=== PATIENT | female | born 1965 | race Caucasian/White ===

== ENCOUNTER → 2018-03-18 11:40 | Outpatient (CLI) | payer OTHER, SELFPAY ==
--- NOTE | 2018-03-18 | DI.MRI.S_ITS ---
PROCEDURE: MR SHOULDER RT WO/W CON INDICATIONS: REPETITIVE STRAIN INJURY OF RIGHT SHOULDER TECHNIQUE: Noncontrast oblique coronal T1 spin echo and T2 fast spin echo with fat saturation, oblique sagittal T1 spin echo and T2 fast spin echo with fat saturation, axial T1 spin echo and T2 fast spin echo with fat saturation through the shoulder. Post-contrast oblique coronal, oblique sagittal, and axial T1 spin echo with fat saturation through the shoulder. COMPARISON: None. FINDINGS: Image quality: Excellent. Rotator cuff: There is no full-thickness or high-grade partial-thickness tear of the rotator cuff. However, there is diffuse increased signal and mild thickening involving the subscapularis tendon without significant partial-thickness tearing identified. Minimal increased signal involving the distal margin of the supraspinatus tendon is present. The infraspinatus and teres minor tendons are intact. There is no significant atrophy of the rotator cuff muscles. There is mild enhancement involving the supraspinatus and subscapularis tendons. Bones and bursae: There is no acute fracture, dislocation, or suspicious osseous lesion identified involving the osseous structures of the right shoulder. No suspicious osseous enhancement is identified. There are mild degenerative changes of the glenohumeral and, clavicular joints. Minimal degenerative cystic change are noted upon the inter-margin of the glenoid fossa. There is mild posterior subluxation of the humeral head with respect to the glenoid. There is a small glenohumeral joint effusion. There are moderate degenerative changes of the acromioclavicular joint. A small amount of fluid is contained within the subacromial subdeltoid bursa. Capsule and soft tissues: Evaluation of the labrum and the glenohumeral ligaments is difficult without intra-articular contrast. No acute ligamentous injuries are suspected. However, small amount of joint fluid extending beyond inferior joint capsule may represent a chronic inferior glenohumeral ligament injury. There is a moderate-sized tear of the superior labrum that extends from approximately the 3 o'clock position to the 9 o'clock position. No detachment or fragments with large prevertebral cysts are identified. The long head of the biceps tendon is normally positioned within the bicipital groove. There is increased signal identified at the biceps anchor, suggesting probable partial-thickness tearing. No soft tissue masses are identified. There is no abnormal enhancement involving the soft tissues of the right shoulder. IMPRESSION: 1. Mild to moderate supraspinatus and subscapularis tendinopathy without significant tearing. 2. Moderate-sized superior labral tear probably involves the biceps anchor. 3. Degenerative changes of the glenohumeral joint with an associated small joint effusion. 4. Moderate degenerative changes of the acromioclavicular joint. 5. 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 6. No abnormal bony enhancement or suspicious soft tissue enhancement. Dictated by: Maximiliano Kong M.D. on 03/18/2018 at 16:30 Approved by: Maximiliano Kong M.D. on 03/18/2018 at 16:57
== END ==
PROVIDERS: Visit Provider Nurse Practitioner Family
DX: S46.911A Strain of unspecified muscle, fascia and tendon at shoulder and upper arm level, right arm, initial encounter (principal); S43.491A Other sprain of right shoulder joint, initial encounter; M19.011 Primary osteoarthritis, right shoulder; M25.411 Effusion, right shoulder
CPT/HCPCS: 73223; A9579

== ENCOUNTER 2023-07-22 14:01 | Emergency (ER) | payer SELFPAY ==
[2023-07-22 14:04] VITALS: BP 150/102; PULSE 110; RESP 18; TEMP 36.8; O2SAT 99
--- NOTE | 2023-07-22 14:30 | PC.NURSE ---
Pt declined IV Zofran. Moved from chair/[place], to waiting room.
[2023-07-22 14:35] LABS: Add Manual Diff / Slide Review NO; Basophils Absolute Auto 100 /uL (0-100); Basophils Percent Auto 0.8 % (0-2); Eosinophils Absolute Auto 200 /uL (0-450); Eosinophils Percent Auto 1.1 % (2-4); Hematocrit 51.3 % (36-46); Lymphocytes Absolute Auto 3800 /uL (1100-4500); Lymphocytes Percent Auto 26.3 % (25-40); Mean Corpuscular HGB Conc 35.2 % (30-36); Mean Corpuscular Hemoglobin 32.1 PG (26-34); Mean Corpuscular Volume 91.4 fL (80-100); Monocytes Absolute Auto 1400 /uL (0-900); Monocytes Percent Auto 9.5 % (3-14); Neutrophils Absolute Auto 9000 /uL (1500-7000); Neutrophils Percent Auto 62.3 % (50-75); Platelet Count 346 X10^3/uL (150-400); Red Blood Cell Count 5.61 X10^6/uL (4.0-5.2); Red Cell Distribution Width 13.1 % (11.6-14.8); White Blood Cell Count 14.4 X10^3/uL (4.5-11.0)
[2023-07-22 15:47] LABS: Alanine Aminotransferase 37 IU/L (<35); Albumin 4.8 g/dL (3.5-5.0); Albumin Globulin Ratio 1.4 (1.0-2.8); Alkaline Phosphatase 73 U/L (38-126); Aspartate Aminotransferase 35 IU/L (14-36); BUN Creatinine Ratio 30.1 (6-22); Bilirubin Total 1.4 mg/dL (0.2-1.3); Blood Urea Nitrogen 44 mg/dL (7-17); Calcium 10.2 mg/dL (8.4-10.2); Carbon Dioxide 20 mmol/L (22-32); Chloride 102 mmol/L (98-107); Estimated Glomerular Filt Rate 42 mL/min (>60); Globulin 3.5 g/dL (1.7-4.1); Glucose 122 mg/dL (70-100); HEMOLYSIS 33 (0-50); Lipase 107 U/L (23-300); Potassium 3.6 mmol/L (3.4-5.1); Sodium 135 mmol/L (137-145); Total Protein 8.3 g/dL (6.3-8.2)
== END 2023-07-22 16:00 | disposition left against medical advice (07) ==
PROVIDERS: Emergency Provider Emergency Medicine
DX: R10.9 Unspecified abdominal pain (principal); R11.10 Vomiting, unspecified
CPT/HCPCS: 36415; 80053; 83690; 85025; 99283; J2405

== ENCOUNTER 2023-07-23 17:54 | Emergency (ER) | payer SELFPAY ==
[2023-07-23 18:22] VITALS: BP 209/104; PULSE 89; RESP 18; TEMP 36.6; O2SAT 100
[2023-07-23] MEDS: ONDANSETRON 4 MG ODT PO (18:30)
[2023-07-23] MEDS: ONDANSETRON 4 MG/2 ML INJ IV (21:43)
--- NOTE | 2023-07-23 21:54 | ED_ITS ---
HPI - Abdominal Pain General Chief Complaint: Abdominal Pain Stated Complaint: vomiting Time Seen by Provider: 07/23/23 21:31 Source: patient Mode of arrival: Wheelchair History of Present Illness HPI narrative: 58-year-old female presents for 1 week of generalized abdominal pain, worse in the midepigastric region, with nausea and vomiting. Patient was seen here yesterday for same but left before physician was able to evaluate the patient. Patient states she is able to sleep through the night but when she wakes up she vomits. She has barely been able to keep any food or liquids down due to her vomiting. She states the only thing that helps her is warm water such as hot tubs or hot showers. She does endorse marijuana use. Denies history of abdominal surgeries. Related Data Previous Rx's Medication Instructions Recorded HYDROCODONE/ACET (HYDROCODONE 1 tab PO Q6 ##40 01/15/12 BITARTRATE-ACETAMINOPHEN) ondansetron 4 mg disintegrating 4 mg PO Q8H PRN nausea and 07/23/23 tablet vomiting #30 tabs promethazine 25 mg rectal 25 mg NV Q4-6H PRN nausea and 07/23/23 suppository vomiting #12 ea sucralfate 1 gram tablet (Carafate) 1 g PO QACHS #30 tabs 07/23/23 Allergies Allergy/AdvReac Type Severity Reaction Status Date / Time Sulfa (Sulfonamide Allergy Mild Hives Verified 07/22/23 14:13 Antibiotics) Review of Systems Review of Systems Narrative: Negative except as noted above Patient History Social History Smoking Status: Current every day smoker Smoking Status: Current every day smoker tobacco type: vaping Substance Use Type: marijuana Exam Initial Vital Signs Initial Vital Signs: Vital Signs Temperature 98 F 07/23/23 18:22 Pulse Rate 89 07/23/23 18:22 Respiratory Rate 18 07/23/23 18:22 Blood Pressure 209/104 H 07/23/23 18:22 Pulse Oximetry 100 07/23/23 18:22 Oxygen Delivery Method Room Air 07/23/23 18:22 Const: Awake, alert, no acute distress, nontoxic appearing ENT: Edentulous, mildly dry mucous membranes Cardiac: regular rate, regular rhythm RESP: unlabored, clear bilaterally, no wheezing GI: Soft, generalized tenderness to deep palpation without rebound or guarding MSK: Atraumatic, full range of motion, pulses equal Skin: Warm, Dry, intact, no rashes Neuro: AO x3, CN II-XII grossly intact, moves all extremities Psych: affect normal, mood normal, not suicidal, not homicidal Course Orders Ordered: ED Orders 07/23/23 21:37 Complete Blood Count AUTO DIFF Stat Comprehensive Metabolic Panel Stat Lipase Stat MAG [Magnesium] Stat 07/23/23 21:59 CT abdomen pelvis w con Stat Discontinued Medications Al Hydrox/Mg Hydrox/Simethicone (Mag Hydrox/Alum/Simeth 30 Ml Udc) 30 ml PO NOW ONE Stop: 07/23/23 22:10 Last Admin: 07/23/23 22:13 Dose: 30 ml Documented By: EDA Droperidol (Droperidol 5 Mg/2 Ml Vial) 2.5 mg IV NOW ONE Stop: 07/23/23 22:01 Last Admin: 07/23/23 22:11 Dose: 2.5 mg Documented By: EDA Sodium Chloride (Normal Saline 0.9%) 1,000 mls @ 1,000 mls/hr IV BOLUS ONE Stop: 07/23/23 22:59 Last Admin: 07/23/23 22:11 Dose: 1,000 mls/hr Documented By: EDA Ondansetron HCl (Ondansetron 4 Mg/2 Ml Inj) 4 mg IV NOW PRN PRN Reason: Nausea And Vomiting Last Admin: 07/23/23 21:43 Dose: 4 mg Documented By: EDA Ondansetron HCl (Ondansetron 4 Mg Odt) 4 mg PO NOW PRN PRN Reason: Nausea And Vomiting Last Admin: 07/23/23 18:30 Dose: 4 mg Documented By: ISMAEL Vital Signs Vital signs: Vital Signs - 8 hr 07/23/23 22:21 07/23/23 22:34 07/23/23 22:36 Pulse Rate 95 H 103 H Respiratory Rate 21 Blood Pressure 200/98 H Pulse Oximetry 100 100 Oxygen Delivery Method 07/23/23 22:36 07/23/23 23:00 07/23/23 23:00 Pulse Rate 96 H 97 H Respiratory Rate 17 24 Blood Pressure 200/94 H Pulse Oximetry 100 98 Oxygen Delivery Method 07/23/23 23:30 07/23/23 23:30 07/24/23 00:00 Pulse Rate 97 H 98 H Respiratory Rate 22 25 H Blood Pressure 191/98 H Pulse Oximetry 97 96 Oxygen Delivery Method 07/24/23 00:01 07/24/23 00:01 Pulse Rate 98 H Respiratory Rate 28 H Blood Pressure 122/66 Pulse Oximetry 97 Oxygen Delivery Method Room Air MDM - Abdominal Pain Differential Diagnosis Differential diagnosis: Likely abdominal pain, diverticulitis and pancreatitis Lab Data 07/23/23 21:37 07/23/23 21:37 Labs: Lab Results 07/23/23 Range/Units 21:37 WBC 9.1 (4.5-11.0) X10^3/uL RBC 5.46 H (4.0-5.2) X10^6/uL Hgb 17.5 H (12.0-16.0) g/dL Hct 49.1 H (36-46) % MCV 89.8 (80-100) fL MCH 32.0 (26-34) PG MCHC 35.7 (30-36) % RDW 12.7 (11.6-14.8) % Plt Count 344 (150-400) X10^3/uL Neut % (Auto) 88.5 H D (50-75) % Lymph % (Auto) 9.1 L (25-40) % [place] % (Auto) 1.3 L (3-14) % Eos % (Auto) 0.3 L (2-4) % Baso % (Auto) 0.8 (0-2) % Neut # (Auto) 8000 H (2674-9566) /uL Lymph # (Auto) 800 L (3131-2446) /uL [place] # (Auto) 100 (0-900) /uL Eos # (Auto) 0 (0-450) /uL Baso # (Auto) 100 (0-100) /uL Sodium 136 L (137-145) mmol/L Potassium 3.5 (3.4-5.1) mmol/L Chloride 98 (98-107) mmol/L Carbon Dioxide 21 L (22-32) mmol/L BUN 39 H (7-17) mg/dL Creatinine 1.06 H (0.52-1.04) mg/dL Estimated GFR > 60 (>60) mL/min BUN/Creatinine Ratio 36.8 H (6-22) Glucose 146 H (70-100) mg/dL Calcium 10.0 (8.4-10.2) mg/dL Magnesium 2.4 H (1.6-2.3) mg/dL Total Bilirubin 1.3 (0.2-1.3) mg/dL AST 33 (14-36) IU/L ALT 33 (<35) IU/L Alkaline Phosphatase 70 (38-126) U/L Total Protein 8.4 H (6.3-8.2) g/dL Albumin 4.9 (3.5-5.0) g/dL Globulin 3.5 (1.7-4.1) g/dL Albumin/Globulin Ratio 1.4 (1.0-2.8) Lipase 136 (23-300) U/L MDM Narrative Medical decision making narrative: One week of symptoms. Patient states that the only thing that seems to help her symptoms is warm to hot water. With patient's given history of cannabis use this is suspicious for cannabinoid hyperemesis. IV, electronic device monitor ordered. We will order labs, CT imaging, IV fluids. Laboratory work is reviewed, WBC count 9.1 (down from 14.4), Hgb 17.5 (from 18), sodium 136, GFR greater than 60, glucose 146, magnesium 2.4, potassium 3.5. Patient received IV fluids and antiemetics in his able to tolerate p.o., symptoms much improved. CT of the abdomen and pelvis shows mild esophagitis, nonspecific findings. Patient advised of all lab and imaging findings, I highly recommended cessation of all marijuana products as this is likely contributing to her symptoms. Antiemetic medication sent to pharmacy of choice. Counseled brat diet. Close PCP follow up advised. Discharge Plan Departure Patient Disposition: Home Clinical Impression: Gastritis, Nausea & vomiting Instructions: DI for Abdominal Pain-Adult, DI for Vomiting -- Adult Prescriptions: New sucralfate [Carafate] 1 gram tablet 1 g PO QACHS Qty: 30 0RF ondansetron 4 mg tablet,disintegrating 4 mg PO Q8H PRN (Reason: nausea and vomiting) Qty: 30 0RF promethazine 25 mg suppository 25 mg NV Q4-6H PRN (Reason: nausea and vomiting) Qty: 12 0RF No Action HYDROCODONE/ACET (HYDROCODONE BITARTRATE-ACETAMINOPHEN) 1 tab PO Q6 Qty: 40 0RF Referrals: Miscellaneous,Doctor, MD [Primary Care Provider] - Stand Alone Forms: Patient Portal/API
--- NOTE | 2023-07-23 21:59 | DI.CT.S_ITS ---
PROCEDURE: CT ABDOMEN PELVIS W CON INDICATIONS: MIDEPIGASTRIC ABD PAIN, INTRACTABLE N/V X 1 WK TECHNIQUE: After the administration of intravenous contrast, axial sections acquired from the lung bases to the pubic symphysis. Coronal and sagittal reformats were performed. For radiation dose reduction, the following was used: automated exposure control, adjustment of mA and/or kV according to patient size. COMPARISON: [facility], , ABDOMEN COMPLETE, 05/23/2009, 14:29. [facility], , ABDOMEN ACUTE SERIES, 05/23/2009, 14:00. FINDINGS: Image quality: Diagnostic. Lower Chest: No significant findings. Small hiatal hernia and mild concentric thickening of the distal esophagus near the GE junction. ABDOMEN: Liver: Normal size. No solid mass. Mild hepatic steatosis. Gallbladder: No radiopaque gallstones or wall thickening. Biliary ducts: No biliary dilation. Pancreas: No ductal dilation. Spleen: Size is within normal limits. Adrenal Glands: Bilateral adrenal thickening. Kidneys and Ureters: No hydronephrosis. No solid mass. No complex renal cystic lesion which requires follow up. Stomach and Bowel: Stomach may be mildly thickened but stomach suggesting gastritis. Normal colonic caliber. Mild diffuse colonic wall thickening involving the splenic flexure, descending and sigmoid colon. Small bowel loops are normal in caliber. Diverticulosis. No acute diverticulitis. Normal appendix. Peritoneum: No abnormal intraperitoneal fluid. No free air. Ventral Wall: No hernia. Abdominal Nodes: No retroperitoneal or mesenteric adenopathy by size criteria. Vessels: Aorta and inferior vena cava are normal in size. Moderate atherosclerotic calcifications. PELVIS: Pelvic Organs: Unremarkable. Bladder: Unremarkable. Pelvic Nodes: No enlarged lymph nodes. Miscellaneous: No inguinal hernias are seen. Bones: No aggressive osseous abnormality. IMPRESSION: 1. Gastric wall thickening suggesting gastritis. 2. Small hiatal hernia. There is concentric thickening at the gastroesophageal junction. Differential diagnoses are esophagitis versus gastroesophageal reflux. 3. Mild concentric thickening of the left colon, suggesting mild colitis. 4. Diverticulosis. No acute diverticulitis. Dictated by: Kasi Mcdaniels M.D. on 07/23/2023 at 23:18 Approved by: Kasi Mcdaniels M.D. on 07/23/2023 at 23:23
[2023-07-23 22:03] LABS: Alanine Aminotransferase 33 IU/L (<35); Albumin 4.9 g/dL (3.5-5.0); Albumin Globulin Ratio 1.4 (1.0-2.8); Alkaline Phosphatase 70 U/L (38-126); Aspartate Aminotransferase 33 IU/L (14-36); BUN Creatinine Ratio 36.8 (6-22); Bilirubin Total 1.3 mg/dL (0.2-1.3); Blood Urea Nitrogen 39 mg/dL (7-17); Carbon Dioxide 21 mmol/L (22-32); Chloride 98 mmol/L (98-107); Estimated Glomerular Filt Rate > 60 mL/min (>60); Globulin 3.5 g/dL (1.7-4.1); Glucose 146 mg/dL (70-100); HEMOLYSIS 16 (0-50); Lipase 136 U/L (23-300); Potassium 3.5 mmol/L (3.4-5.1); Sodium 136 mmol/L (137-145); Total Protein 8.4 g/dL (6.3-8.2)
[2023-07-23 22:08] LABS: Add Manual Diff / Slide Review NO; Basophils Absolute Auto 100 /uL (0-100); Basophils Percent Auto 0.8 % (0-2); Eosinophils Absolute Auto 0 /uL (0-450); Eosinophils Percent Auto 0.3 % (2-4); Hematocrit 49.1 % (36-46); Hemoglobin 17.5 g/dL (12.0-16.0); Lymphocytes Absolute Auto 800 /uL (1100-4500); Lymphocytes Percent Auto 9.1 % (25-40); Mean Corpuscular HGB Conc 35.7 % (30-36); Mean Corpuscular Volume 89.8 fL (80-100); Monocytes Absolute Auto 100 /uL (0-900); Monocytes Percent Auto 1.3 % (3-14); Neutrophils Absolute Auto 8000 /uL (1500-7000); Neutrophils Percent Auto 88.5 % (50-75); Platelet Count 344 X10^3/uL (150-400); Red Blood Cell Count 5.46 X10^6/uL (4.0-5.2); Red Cell Distribution Width 12.7 % (11.6-14.8); White Blood Cell Count 9.1 X10^3/uL (4.5-11.0)
[2023-07-23] MEDS: DROPERIDOL 5 MG/2 ML VIAL 2.5 MG IV (22:11)
[2023-07-23] MEDS: SODIUM CHLORIDE 0.9% 1,000 ML 1000 ML IV (22:11)
[2023-07-23] MEDS: MAG HYDROX/ALUM/SIMETH 30 ML UDC PO (22:13)
[2023-07-23 22:21] VITALS: PULSE 95; RESP 21; O2SAT 100
[2023-07-23 22:24] LABS: Magnesium 2.4 mg/dL (1.6-2.3)
[2023-07-23 22:34] VITALS: PULSE 103; O2SAT 100
[2023-07-23 22:36] VITALS: BP 200/98; PULSE 96; RESP 17; O2SAT 100
[2023-07-23 23:00] VITALS: BP 200/94; PULSE 97; RESP 24; O2SAT 98
[2023-07-23 23:30] VITALS: BP 191/98; PULSE 97; RESP 22; O2SAT 97
--- NOTE | 2023-07-23 23:44 | PC.NURSE ---
Pt tolerating PO intake of water well. No nausea/vomiting.
[2023-07-24] VITALS: PULSE 98; RESP 25; O2SAT 96
[2023-07-24 00:01] VITALS: BP 122/66; PULSE 98; RESP 28; O2SAT 97
== END 2023-07-24 00:13 | disposition home or self-care (01) ==
PROVIDERS: Emergency Provider Emergency Medicine
DX: K29.70 Gastritis, unspecified, without bleeding (principal); R11.2 Nausea with vomiting, unspecified; R10.13 Epigastric pain
CPT/HCPCS: 36415; 74177; 80053; 83690; 83735; 85025; 93005; 96374; 96375; 99284; J1790; J2405; Q9967